=== PATIENT | female | born 1970 | race Caucasian/White ===

== ENCOUNTER 2018-06-23 08:42 | Emergency (ER) | payer SELFPAY ==
[~2018-06-23] VITALS: Ht 167.6 cm; Wt 70.0 kg
[2018-06-23 08:45] VITALS: Ht 167.6 cm; Wt 70.0 kg
--- NOTE | 2018-06-23 08:49 | ERD ---
ER Documentation Chief Complaint Chief Complaint BIB [facility] 39 FOR EVAL OF ANXIETY EPISODE. STATES UNDER ALOT OF STRESS HPI 48-year-old female presents to the ED via rescue ambulance complaining of headache and anxiety. Patient presented to a local clinic this morning for evaluation of a 3-day history of gradual onset, left-sided headache which has become increasingly severe with nausea and nonbloody, nonbilious emesis. At the clinic she became increasingly anxious, was found to be hypertensive, 911 called and patient was transported to the ED for further evaluation. Patient reports history of these same headaches intermittently every 1 to 2 months for the last 2 to 3 years. No visual changes, focal weakness or numbness. Denies neck or back pain. Denies chest pain or palpitations. No abdominal pain, nausea vomiting. No fevers or chills. Admits to increasing financial and interpersonal stressors. Denies depression or thoughts of self-harm. ROS All systems reviewed and are negative except as per history of present illness. PMhx/Soc History of Surgery: No Anesthesia Reaction: No Hx Neurological Disorder: No Hx Respiratory Disorders: No Hx Cardiac Disorders: No Hx Psychiatric Problems: No Hx Miscellaneous Medical Probl: Yes (Hyperlipidemia) Hx Alcohol Use: No Hx Substance Use: No Hx Tobacco Use: No FmHx No stroke, subarachnoid hemorrhage or sudden cardiac . Physical Exam Vitals Vital Signs Date Temp Pulse Resp B/P (MAP) Pulse Ox O2 O2 Flow FiO2 Time Delivery Rate 06/23/18 63 17 134/72 100 Room Air 09:27 (92) 06/23/18 97.6 61 24 147/120 99 08:45 (129) Physical Exam Const: Alert, anxious, crying, moderate distress Head: Atraumatic Eyes: Pupils equal reactive to light, extraocular movements are intact. No nystagmus. Normal Conjunctiva ENT: Normal External Ears, Nose and Mouth. Neck: Full range of motion. No meningismus. Nontender. Resp: Tachypnea, breath sounds equal and clear to auscultation bilaterally Cardio: Regular rate and rhythm, no murmurs Abd: Soft, non tender, non distended. Normal bowel sounds Skin: No petechiae or rashes Back: No midline or flank tenderness Ext: No cyanosis, or edema Neur: Awake and alert. Cranial nerves II through XII are grossly intact. Motor and sensory equal bilaterally. No pronator drift. No focal deficit. Psych: Cooperative. Anxious, crying. Results 24 hrs Current Medications Medications Dose Sig/Arturo Start Time Status Last (Trade) Ordered Route PRN Stop Time Admin Dose Reason Admin 10 mg ONCE STAT 06/23/18 DC 06/23/18 Metoclopramid IV 08:52 09:05 e HCl 06/23/18 08:54 (Reglan) 25 mg ONCE STAT 06/23/18 DC 06/23/18 Diphenhydrami IV 08:52 09:05 ne HCl 06/23/18 08:54 (Benadryl) Procedures/MDM DOCUMENTS REVIEWED: ED nurse, no prior records, EMS report LAB INTERPRETATION: [] EKG: Time: [ ] My Interpretation IMAGING: [ ] ED COURSE: [] REEXAMINATION/REEVALUATION: Time: 10:34 MEDICAL DECISION MAKIN-year-old female presents to the ED via rescue ambulance complaining of headache and anxiety. Neurologic symptoms have stabilized while they have been evaluated in the department and are appropriate for outpatient work up. No e/o meningitis, intracranial bleed, seizure, stroke. Neuroimaging is not indicated in this patient presents with exacerbation of her chronic, baseline headache. Anxiety due to multiple stressors but no depression or thoughts of self-harm. Stable for discharge with precautionary instructions and outpatient follow-up as counseled. Counseled patient and family regarding diagnostic workup, diagnosis and need for followup. Understands to return to ED if symptoms recur, worsen or any other concerns. Departure Diagnosis: Primary Impression: Headache Headache type: unspecified Headache chronicity pattern: chronic headache Intractability: not intractable Qualified Codes: R51 - Headache Additional Impression: Anxiety attack Condition: Stable YUDY SANDY MD June 23, 2018 08:49
[2018-06-23] MEDS ORDERED: DIPHENHYDRAMINE 50 MG INJ IV STA (08:52)
[2018-06-23] MEDS ORDERED: METOCLOPRAMIDE 10 MG INJ IV STA (08:52)
[2018-06-23 09:27] VITALS: BP 134/72; PULSE 63; RESP 17
== END 2018-06-23 11:06 | disposition home or self-care (01) ==
LOC: E/R 08:42
DX: F41.9 Anxiety disorder, unspecified (principal); R51 Headache
CPT/HCPCS: 96374; 96375; 99284; J1200; J2765